=== PATIENT | female | born 1980 | race African-American/Black ===

== ENCOUNTER 2021-05-17 18:55 | Emergency (ER) | payer OTHER, SELFPAY ==
[2021-05-17 18:59] VITALS: BP 143/81; PULSE 106; RESP 18; TEMP 36.6; O2SAT 100
--- NOTE | 2021-05-17 19:55 | PC.NURSE ---
PT WHILE HAVING EKG COMPLETED, STATED THAT SHE WANTED TO LEAVE. ENCOURAGED TO STAY BUT THE PT POLITELY REFUSED. ASKED TO RETURN IF S/S WARRANTED EVALUATION, PT AGREED TO THIS REQUEST
== END 2021-05-17 19:55 | disposition left against medical advice (07) ==
LOC: ANHED 20:05
DX: R53.1 Weakness (principal)
CPT/HCPCS: 99199